=== PATIENT | female | born 1990 | race Caucasian/White ===

== ENCOUNTER 2018-09-22 23:03 | Emergency (ER) | payer MEDICAID, OTHER ==
[~2018-09-22] VITALS: Ht 152.4 cm; Wt 59.9 kg
[~2018-09-22 23:03] MED LIST: ACET-2619 PO; PREN-385 PO
[2018-09-22 23:37] VITALS: BP 112/84
--- NOTE | 2018-09-22 23:40 | NUR ---
AMBULATED TO LOBBY WITH VSS. SWABBED FOR INFLUENZA.
--- NOTE | 2018-09-23 01:03 | NUR ---
PT AMABULATED TO BED 10
--- NOTE | 2018-09-23 01:30 | NUR ---
PT BIB C/O COUGH, SORE THORAT. NON-PRODUCTIVE COUGH, SORE THROAT REDNESS AND EDEMA. NO EXUDATE. 10 PAIN. LUNGS CLEAR BILAT. AFEBRILE. VSS. DENIES N/V/D, CP, SOB, OR LOC. AAOX4. CLEAR SPEECH. SKIN WARM DRY AND INTACT. PMH: DENIES RX: DENIES
[2018-09-23 01:38] VITALS: BP 112/84
--- NOTE | 2018-09-23 01:38 | NUR ---
Patient discharged with v/s stable. Written and verbal after care instructions given and explained. Patient alert, oriented and verbalized understanding of instructions. Ambulatory with steady gait. All questions addressed prior to discharge. ID band removed. Patient advised to follow up with PMD. Rx of Promethazine and Amoxicillin given. Patient educated on indication of medication including possible reaction and side effects. Opportunity to ask questions provided and answered.
== END 2018-09-23 01:03 | disposition home or self-care (01) ==
LOC: MED 23:03
DX: J02.8 Acute pharyngitis due to other specified organisms (principal); B96.89 Other specified bacterial agents as the cause of diseases classified elsewhere; Z79.899 Other long term (current) drug therapy
CPT/HCPCS: 87804; 99283

== ENCOUNTER 2024-02-10 22:49 | Emergency (ER) | payer OTHER ==
[~2024-02-10] VITALS: Ht 149.9 cm; Wt 61.2 kg
[2024-02-10 22:56] VITALS: BP 147/75; PULSE 60; RESP 18; TEMP 97.9; O2SAT 100
[2024-02-10] MEDS: KETOROLAC 60 MG/2 ML VIAL IM ONE (23:32)
[2024-02-10] MEDS ORDERED: NAPR-337 PO (23:42)
[2024-02-10] MEDS ORDERED: PENI500T20 PO (23:42)
== END 2024-02-10 23:45 | disposition home or self-care (01) ==
LOC: MED 22:49
DX: K08.89 Other specified disorders of teeth and supporting structures (principal); R68.84 Jaw pain; Z79.1 Long term (current) use of non-steroidal anti-inflammatories (NSAID); Z79.2 Long term (current) use of antibiotics; Z79.899 Other long term (current) drug therapy
CPT/HCPCS: 96372; 99283; J1885